=== PATIENT | male | born 1985 | race Hispanic/Latino ===

== ENCOUNTER → 2022-02-19 | Outpatient (CLI) | payer BC | END | disposition home or self-care (01) | LOC: SHCH 08:59 | PROVIDERS: ATTEND Internal Medicine Cardiovascular Disease | DX: I87.2 Venous insufficiency (chronic) (peripheral) (principal) | CPT/HCPCS: 93970 ==

== ENCOUNTER → 2022-05-19 | Outpatient (CLI) | payer BC | END | disposition home or self-care (01) | LOC: SHCH 09:06 | PROVIDERS: ATTEND Internal Medicine Cardiovascular Disease | DX: I87.2 Venous insufficiency (chronic) (peripheral) (principal); Z98.890 Other specified postprocedural states | CPT/HCPCS: 93971 ==